=== PATIENT | male | born 1985 | race Asian ===

== ENCOUNTER 2018-04-16 21:40 | Emergency (ER) | payer OTHER ==
--- NOTE | 2018-04-16 21:50 | PDOC ---
History of Present Illness - General Chief Complaint: Pain Stated Complaint: RT HAND PAIN Time Seen by Provider: 04/16/18 21:45 - History of Present Illness Initial Comments: 04/16/18 22:11 This 32-year-old man with a history of sciatica/herniated disc but no other medical issues presents with right thumb pain. He was seen in urgent care yesterday and received "steroid shot" in MCP joint at the base of the thumb. Patient states that x-ray was performed and it showed no fracture or dislocation. Patient has no history of trauma and denies overuse. Thumb has not been swollen/red . No history of pain or inflammation in any other joint. No history of fever or chills Although patient states that he is "ALLERGIC to Toradol", he has been taking ibuprofen without adverse effects. Patient has been followed by in the past. Past History - Past Medical History Allergies/Adverse Reactions: Allergies Allergy/AdvReac Type Severity Reaction Status Date / Time No Known Allergies Allergy Unverified 09/30/12 14:42 Home Medications: Ambulatory Orders Amox-Tr/K Cl [Augmentin - 875Mg Tablet] 1 tab PO BID #14 tablet 04/16/18 Diclofenac Sodium [Voltaren -] 75 mg PO BID PRN #14 tablet. 04/16/18 COPD: No Hypercholesterolemia: Yes Psychiatric Problems: Yes Other medical history: LATERAL SCIATICA, HERNIATED DISC - Suicide/Smoking/Psychosocial Hx Smoking History: Current every day smoker Have you smoked in the past 12 months: Yes Number of Cigarettes Smoked Daily: 5 Information on smoking cessation initiated: Yes 'Breaking Loose' booklet given: 07/18/16 Hx Alcohol Use: No Drug/Substance Use Hx: No Substance Use Type: Alcohol, Marijuana Review of Systems - Review of Systems Able to Perform ROS?: Yes Comments:: 12 point review of systems is negative except for what is noted in the history of present illness *Physical Exam - Vital Signs Last Vital Signs Temp Pulse Resp BP Pulse Ox 99 F 99 H 16 127/84 99 04/16/18 21:43 04/16/18 21:43 04/16/18 21:43 04/16/18 21:43 04/16/18 21:43 - Physical Exam Comments: GENERAL: Adult male, alert and oriented 3, in no acute distress HEAD: Normal with no signs of trauma. EYES: PERRLA, EOMI, sclera anicteric, conjunctiva clear. ENT: Ears normal, nares patent, oropharynx clear without exudates. Moist mucous membranes. NECK: Normal range of motion, supple without lymphadenopathy, JVD, or masses. LUNGS: Breath sounds equal, clear to auscultation bilaterally. No wheezes, and no crackles. HEART:Regular rate and rhythm, normal S1 and S2 without murmur, rub or gallop. ABDOMEN:.normal bowel sounds No guarding,tenderness or rebound.No masses No distention. EXTREMITIES: Right hand-moderate tenderness MCP joint of the thumb with reproduction of pain on adduction of the thumb to palm No increased warmth/erythema/ edema. No lymphangitic streaking in right arm Remainder the extremity exam is normal NEUROLOGICAL: Cranial nerves II through XII grossly intact. Normal speech. No focal neurological deficits. MUSCULOSKELETAL: Back non-tender to palpation, no CVA tenderness SKIN: Warm, Dry, normal turgor, no rashes or lesions noted. Medical Decision Making - Medical Decision Making Right hand x-ray performed to evaluate for fracture/dislocation: No evidence of bony pathology in thumb or other part of the hand Although there is no clear evidence of inflammation/infection/cellulitis in the area where the patient has pain, since he states that he had a "steroid shot" in the local area of the most severe portion of his pain, localized infection cannot be ruled out. Therefore, the patient will be started on Augmentin 875/ 125 twice a day for one week. The patient has been followed by , hand surgeon the past. The patient has been advised to call the office tomorrow for follow-up within the next 48 hours. If he has worsening pain/redness/swelling or notice any lymphangitic streaking in the right hand/arm area, he should return to the ER *DC/Admit/Observation/Transfer Diagnosis at time of Disposition: Thumb pain Qualifiers: Laterality: right Qualified Code(s): M79.644 - Pain in right finger(s) - Discharge Dispostion Disposition: HOME Condition at time of disposition: Stable - Prescriptions Prescriptions: Amox-Tr/K Cl [Augmentin - 875Mg Tablet] 1 tab PO BID #14 tablet Diclofenac Sodium [Voltaren -] 75 mg PO BID PRN #14 tablet.dr SEQUEIRA Reason: Pain - Referrals Referrals: ON STAFF,NOT [Primary Care Provider] - Madan Grant MD [Staff Physician] - Call tomorrow - Patient Instructions Additional Instructions: Augmentin 875/125 twice a day for one week; take with food Diclofenac 75 mg twice a day as needed for pain; take with food Call office tomorrow to follow up with Dr. Grant Return to ER if you have increasing swelling/redness or you develop red streaking up your arm - Post Discharge Activity
[2018-04-16 21:56] VITALS: BP 127/84; PULSE 99; TEMP 99; BMI 27.3
[2018-04-16] MEDS ORDERED: AMOX TR/POT CLAV 875MG/125MG TABLETS (FP) PO ONE (22:37)
[2018-04-16] MEDS ORDERED: NAPROXEN 375 MG TABLET (FP) PO ONE (22:37)
[2018-04-16] MEDS ORDERED: NAPROXEN 375 MG TABLET (FP) ONE (22:42)
[2018-04-16] MEDS ORDERED: AMOX TR/POT CLAV 875MG/125MG TABLETS (FP) ONE (22:43)
== END 2018-04-16 22:49 | disposition home or self-care (01) ==
LOC: FER 21:40
DX: M79.644 Pain in right finger(s) (principal); F17.210 Nicotine dependence, cigarettes, uncomplicated; E78.00 Pure hypercholesterolemia, unspecified; F99 Mental disorder, not otherwise specified
CPT/HCPCS: 73130-TC-RT-FY; 99282-25

== ENCOUNTER 2020-05-05 17:00 | Emergency (ER) | payer OTHER ==
[2020-05-05 17:25] VITALS: BP 123/82; PULSE 98; TEMP 99.2; BMI 44.3
--- NOTE | 2020-05-05 17:42 | PDOC ---
History of Present Illness - General Chief Complaint: Abscess Boil Stated Complaint: BUTTOCK ABSCESS Time Seen by Provider: 05/05/20 17:10 History Source: Patient Exam Limitations: No Limitations - History of Present Illness Initial Comments: 34 yo M presents with L buttock abscess. He states he has had pain and swelling for the past few days, but it became severe today, unable to sit. Denies any leakage of fluid, but noted that there is a black area on the surface. Denies fever, chills. Past History - Medical History Allergies/Adverse Reactions: Allergies Allergy/AdvReac Type Severity Reaction Status Date / Time No Known Allergies Allergy Unverified 09/30/12 14:42 Home Medications: Ambulatory Orders Cephalexin Monohydrate [Keflex -] 500 mg PO Q6H #28 capsule 05/05/20 Lurasidone HCl [Latuda] 60 mg PO HS 05/05/20 Sulfamethoxazole/Trimethoprim [Bactrim Ds -] 1 tab PO BID 05/05/20 Temazepam [Restoril] 15 mg PO HS 05/05/20 COPD: No Hypercholesterolemia: Yes Psychiatric Problems: Yes - Psycho-Social/Smoking History Smoking History: Current every day smoker Have you smoked in the past 12 months: Yes Number of Cigarettes Smoked Daily: 10 Information on smoking cessation initiated: Yes 'Breaking Loose' booklet given: 07/18/16 - Substance Abuse Hx (Audit-C & DAST Scrn) How often the patient has a drink containing alcohol: Never Score: In Men: 4 or > Positive; In Women: 3 or > Positive: 0 Screen Result (Pos requires Nsg. Audit-10AR): Negative In the last yr the pt used illegal drug/Rx for NonMed reason: No Score: Yes response is considered Positive: 0 Screen Result (Positive result requires Nsg. DAST-10): Negative Review of Systems - Review of Systems Able to Perform ROS?: Yes Comments:: GENERAL/CONSTITUTIONAL: No fever or chills. No weakness. HEAD, EYES, EARS, NOSE AND THROAT: No change in vision. No ear pain or discharge. No sore throat. CARDIOVASCULAR: No chest pain or shortness of breath. RESPIRATORY: No cough, wheezing, or hemoptysis. GASTROINTESTINAL: No nausea, vomiting, diarrhea or constipation. GENITOURINARY: No dysuria, frequency, or change in urination. MUSCULOSKELETAL: No joint or muscle swelling or pain. No neck or back pain. SKIN: +Abscess to L buttock NEUROLOGIC: No headache, vertigo, loss of consciousness, or change in strength/sensation. ENDOCRINE: No increased thirst. No abnormal weight change. HEMATOLOGIC/LYMPHATIC: No anemia, easy bleeding, or history of blood clots. ALLERGIC/IMMUNOLOGIC: No hives or skin allergy. *Physical Exam - Vital Signs Last Vital Signs Temp Pulse Resp BP Pulse Ox 99.2 F 98 H 16 123/82 98 05/05/20 17:05 05/05/20 17:05 05/05/20 17:05 05/05/20 17:05 05/05/20 17:05 - Physical Exam GENERAL: Awake, alert, and fully oriented, in no acute distress HEAD: No signs of trauma EYES: PERRLA, EOMI, sclera anicteric, conjunctiva clear ENT: Auricles normal inspection, hearing grossly normal, nares patent, oropharynx clear without exudates. Moist mucosa NECK: Normal ROM, supple, no lymphadenopathy, JVD, or masses LUNGS: Breath sounds equal, clear to auscultation bilaterally. No wheezes, and no crackles HEART: Regular rate and rhythm, normal S1 and S2, no murmurs, rubs or gallops ABDOMEN: Soft, nontender, normoactive bowel sounds. No guarding, no rebound. No masses EXTREMITIES: Normal range of motion, no edema. No clubbing or cyanosis. No cords, erythema, or tenderness NEUROLOGICAL: Cranial nerves II through XII grossly intact. Normal speech, normal gait. Motor and sensation intact SKIN: Warm, dry, normal turgor. +Large indurated area with central fluctuance and skin breakdown to the center. Procedures - Incision and Drainage I&D Site: Left: Buttock Anesthesia: 1% Lidocaine Volume(ml): 1 Blade Size: 11 Attempts: 1 Plain Packing: No Complications: none Dressing: Yes Progress: Area was incised with immediate passage of moderate purulent material. Culture sent to lab. Loculations broken up. Exam improved afterwards (no longer tense and fluctuant). Minimal blood loss. Gauze dressing applied. Patient tolerated well. Medical Decision Making - Medical Decision Making Pt was already on 10 day course of bactrim. Keflex added for 7 days. Stable for DC home. Discharge - Discharge Information Problems reviewed: Yes Clinical Impression/Diagnosis: Left buttock abscess Condition: Stable Disposition: HOME - Admission No - Additional Discharge Information Prescriptions: Cephalexin Monohydrate [Keflex -] 500 mg PO Q6H #28 capsule - Follow up/Referral Referrals: Luly Weems [Primary Care Provider] - - Patient Discharge Instructions Patient Printed Discharge Instructions: DI for Incision and Drainage of a Skin Abscess, DI for Skin Abscess Additional Instructions: Soak in warm salt water twice a day for 20 minutes to keep the wound draining. Take antibiotics as prescribed. If you have fever, worsening redness, or any other concerning symptoms, return to the ER immediately. - Post Discharge Activity
--- NOTE | 2020-05-07 09:51 | PDOC ---
*Physical Exam - Vital Signs Last Vital Signs Temp Pulse Resp BP Pulse Ox 99.2 F 98 H 16 123/82 98 05/05/20 17:05 05/05/20 17:05 05/05/20 17:05 05/05/20 17:05 05/05/20 17:05 ED Treatment Course - ADDITIONAL ORDERS Additional order review: 05/05/20 17:40 Gram Stain - Final Buttock - Left Wound Culture - Preliminary Presumptive Mrsa (Pbp2a Pos) Medical Decision Making - Medical Decision Making 05/07/20 09:48 called by lab to report MRSA on culture taken from abscess. Physician note not completed yet. called patient on cell phone. As per patient, he is on bactrim as well as keflex prescribed by Dr. Quintero. On day 7 of bactrim, symptoms are improving. I have instructed the patient to continue bactrim and return to the ED for worsening symptoms. Discharge - Discharge Information Problems reviewed: Yes Clinical Impression/Diagnosis: Left buttock abscess Condition: Stable Disposition: HOME - Additional Discharge Information Prescriptions: Cephalexin Monohydrate [Keflex -] 500 mg PO Q6H #28 capsule - Follow up/Referral Referrals: Luly Weems [Primary Care Provider] - - Patient Discharge Instructions Patient Printed Discharge Instructions: DI for Incision and Drainage of a Skin Abscess, DI for Skin Abscess Additional Instructions: Soak in warm salt water twice a day for 20 minutes to keep the wound draining. Take antibiotics as prescribed. If you have fever, worsening redness, or any other concerning symptoms, return to the ER immediately. - Post Discharge Activity
== END 2020-05-05 17:49 | disposition home or self-care (01) ==
LOC: FER 17:00
DX: L02.31 Cutaneous abscess of buttock (principal)
CPT/HCPCS: 87070; 87186; 87205; 99283-25

== ENCOUNTER 2020-07-10 21:38 | Emergency (ER) | payer OTHER ==
--- OUTSIDE RECORDS SUMMARY | 2020-07-10 21:45 | XMS ---
:1985 Author Organization [facility] Care Team Providers Name Role Phone RACHEL CLAUDIO M.D. Unavailable Unavailable ELY Unavailable Unavailable Re-disclosure Warning The records that you are about to access may contain information from federally- assisted alcohol or drug abuse programs. If such information is present, then the following federally mandated warning applies: This information has been disclosed to you from records protected by federal confidentiality rules (42 CFR part 2). The federal rules prohibit you from making any further disclosure of this information unless further disclosure is expressly permitted by the written consent of the person to whom it pertains or as otherwise permitted by 42 CFR part 2. A general authorization for the release of medical or other information is NOT sufficient for this purpose. The Federal rules restrict any use of the information to criminally investigate or prosecute any alcohol or drug abuse patient.The records that you are about to access may contain highly sensitive health information, the redisclosure of which is protected by Article 27-F of the [facility] Public Health law. If you continue you may haveaccess to information: Regarding HIV / AIDS; Provided by facilities licensed or operated by the [facility] Office of Mental Health; or Provided by the [facility] Office for People With Developmental Disabilities. If such information is present, then the following [facility] mandated warning applies: This information has been disclosed to you from confidential records which are protected by state law. State law prohibits you from making any further disclosure of this information without the specific written consent of the person to whom it pertains, or as otherwise permitted by law. Any unauthorized further disclosure in violation of state law may result in a fine or care home sentence or both. A general authorization for the release of medical or other information is NOT sufficient authorization for further disclosure. Encounters Encounter Providers Location Date Indications Data Source(s ) Outpatient 07/05/2019 [facility] 02:10:00 PM ([facility]) Emergency H 03/26/2019 [facility] 01:46:00 PM Medical Raffy r EDT Outpatient Attender: MELISSAJIMBO CARTAGENA 03/25/2019 [place] [facility] CANEVAAdmitter: [facility] 04:44:00 PM EDT Patient discharged. Insurance Providers Payer name Policy type Policy ID Covered Covered constitution party's Policy P anderson / Coverage constitution party ID relationship to [facility] ormation type rodriguez MVP MEDICAID [id number] SP [id number] HMO O MVP/HHP O [id number] 01 [id number] SELF PAY 00 Self 00 MEDICAID OP [id number] Self [id number] [facility] MVP [id number] Self [id number] [facility] Problems, Conditions, and Diagnoses Code Display Name Description Problem Type Effective Data Dates Source(s) [id number] Post[facility], stress disorder, 05:05:00 PM ( [place] delayed onset delayed onset [facility]) [id number] Attention deficit Attention deficit Complaint 07/08/2019 [facility] hyperactivity hyperactivity 05:05:00 PM ([facility] disorder, disorder, EDT [facility] predominantly predominantly Communit y inattentive type inattentive type Se rvices) [id number] Schizoaffective Schizoaffective Complaint 07/08/2019 [facility] schizophrenia schizophrenia 05:05:00 PM ([facility]) [id number] Moderately severe Moderately severe Complaint 07/08/2019 [facility] recurrent major recurrent major 05:05:00 PM ([facility] depression depression [facility]) F41.9 Anxiety disorder, ANXIETY DISORDER, Diagnosis 03/26/2019 [facility] unspecified UNSPECIFIED 01:46:00 PM [facility] F31.9 Bipolar disorder, BIPOLAR DISORDER, Diagnosis 03/26/2019 [facility] unspecified UNSPECIFIED 01:46:00 PM [facility] F33.9 Major depressive MAJOR DEPRESSIVE Diagnosis 03/26/2019 int disorder, DISORDER, 01:46:00 PM [facility] recurrent, RECURRENT, [facility] Medical unspecified UNSPECIFIED Center 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 03/26/2019 [facility] stress disorder, STRESS DISORDER, 01:46:00 PM J osephs unspecified UNSPECIFIED [facility] Z00.8 Encounter for other ENCOUNTER FOR OTHER Diagnosis 019 [facility] general examination GENERAL EXAMINATION 01:46:0 0 PM [facility] 313.81 OPPOSITIONAL Oppositional Diagnosis 10/15/1999 [facility] DEFIANT DISORDER defiant disorder 10:15:00 AM [facility] Results ID Date Data Source Urinalysis.[id number] 03/27/2019 12:29:00 AM EDT Eber nt [facility] 0 Name Value Range Interpretation Description Data Sup porting Code Source(s) Document(s ) Color of Urine YELLOW <content Saint styleCode="Manuel Anuel d">Color, Medical Urine Center </content>YELL OW <content styleCode="Yocasta lics"> (YELLOW )</content> Glucose NEGATIVE <content [facility] [Mass/volume] styleCode="Manuel Anuel in Urine by d">Urine Medical Test strip Glucose Center </content>NEGA TIVE MG/DL<content styleCode="Yocasta lics"> (NEGATIVE MG/DL)</conten t> UNK CLEAR <content Saint styleCode="Manuel Anuel d">Urine Medical Clarity Center </content>CAMERON R <content styleCode="Yocasta lics"> (CLEAR )</content> pH of Urine by 4.5-8.0 <content Saint Test strip styleCode="Manuel Anuel d">Urine pH Medical </content>7.0 Center <content styleCode="Yocasta lics"> (4.5-8.0 )</content> Specific 1.015-1.02 <content [facility] gravity of 5 styleCode="Manuel Anuel Urine by Test d">Urine Medical strip Specific Center [place] </content>1.01 5 <content styleCode="Yocasta lics"> (1.015-1.025 )</content> Hemoglobin NEGATIVE <content Saint [Presence] in styleCode="Manuel Ramirezs Urine by Test d">Urine Blood Medical strip </content>NEGA Center TIVE <content styleCode="Yocasta lics"> (NEGATIVE )</content> Ketones NEGATIVE <content [facility] [Mass/volume] styleCode="Manuel Anuel in Urine by d">Urine Medical Test strip Ketone Center </content>15 MG/DL<content styleCode="Yocasta lics"> (NEGATIVE MG/DL)</conten t> UNK NEGATIVE <content Saint styleCode="Manuel Anuel d">Urine Medical Bilirubin Center </content>NEGA TIVE <content styleCode="Yocasta lics"> (NEGATIVE )</content> Nitrite NEGATIVE <content Saint [Presence] in styleCode="Manuel Ramirezs Urine by Test d">Urine Medical strip Nitrite Center </content>NEGA TIVE <content styleCode="Yocasta lics"> (NEGATIVE )</content> Urobilinogen 0.2-1.0 <content [facility] [Units/volume] styleCode="Manuel Ramirezs in Urine by d">Urine Medical Test strip Urobilinogen Center </content>1.0 MG/DL<content styleCode="Yocasta lics"> (0.2-1.0 MG/DL)</conten t> Leukocyte NEGATIVE <content [facility] esterase styleCode="Manuel Ramirezs [Presence] in d">Urine Medical Urine by Test Leukocyte Center strip </content>NEGA TIVE <content styleCode="Yocasta lics"> (NEGATIVE )</content> Protein NEGATIVE <content Saint [Mass/volume] styleCode="Manuel Anuel in Urine by d">Urine Medical Test strip Protein Center </content>NEGA TIVE MG/DL<content styleCode="Yocasta lics"> (NEGATIVE MG/DL)</conten t> ID Date Data Source CHMROUTINECCDA.[id number] 03/27/2019 12:29:00 AM EDT [facility] -0400 Name Value Range Interpretation Description Data Sup porting Code Source(s) Document(s ) Cannabinoids <content [facility] [Presence] in styleCode="[facility] Urine by Screen d">Cannabinoid Medical method >50 ng/mL s Center </content>PRES UMPTIVE POSITIVE NG/ML (Reference Range: not available)<br/ > ID Date Data Source Liver 03/26/2019 10:46:00 PM EDT [facility] Profile.[id number] Name Value Range Interpretation Description Data Sup porting Code Source(s) Document(s ) Aspartate 17-59 <content [facility] aminotransferase styleCode="Bold"> Christiano hs [Enzymatic Aspartate Medical activity/volume] Aminotransferase Center in Serum or Plasma (AST) </content>32 IU/L<content styleCode="Italic s"> (17-59 IU/L)</content> Alanine 7-50 <content [facility] aminotransferase styleCode="Bold"> Christiano hs [Enzymatic Alanine Medical activity/volume] Aminotransferase Center in Serum or Plasma (ALT) </content>47 IU/L<content styleCode="Italic s"> (7-50 IU/L)</content> Alkaline 38-126 <content [facility] phosphatase styleCode="Bold"> Anuel [Enzymatic Alkaline Medical activity/volume] Phosphatase (ALP) Cente r in Serum or Plasma </content>96 IU/L<content styleCode="Italic s"> (38-126 IU/L)</content> Albumin 3.5-5.0 <content [facility] [Mass/volume] in styleCode="Bold"> Christiano hs Serum or Plasma Albumin Medical </content>4.9 Center G/DL<content styleCode="Italic s"> (3.5-5.0 G/DL)</content> Bilirubin.total 0.2-1.3 Above high <content [facility] [Mass/volume] in normal styleCode="Bold"> Christiano hs Serum or Plasma Bilirubin Total Medical </content>1.5 Center MG/DL H<content styleCode="Italic s"> (0.2-1.3 MG/DL)</content> ID Date Data Source Hormones.[id number] 03/26/2019 10:46:00 PM EDT [facility] t [facility] Name Value Range Interpretation Description Data Sup porting Code Source(s) Document(s ) Thyrotropin 0.465-4. <content Saint [Units/volume] 68 styleCode="Manuel Anuel in Serum or d">Thyroid Medical Plasma by Stimulating Center Detection Hormone limit <= 0.05 </content>0.64 mIU/L 9 MIU/L<content styleCode="Yocasta lics"> (0.465-4.68 MIU/L)</conten t> ID Date Data Source HematologyRou.[id number] 03/26/2019 10:46:00 PM EDT [facility] nt [facility] 0400 Name Value Range Interpretation Description Data Sup porting Code Source(s) Document(s ) Erythrocyte mean 80.0-100 <content [facility] corpuscular .0 styleCode="Bold Anuel volume [Entitic ">Mean Medical volume] by Corpuscular Center Automated count Volume </content>94.0 FL<content styleCode="Ital ics"> (80.0-100.0 FL)</content> Leukocytes 4.4-11.0 <content Saint [#/volume] in styleCode="Bold Anuel Blood by ">White Blood Medical Automated count Cell Count Center </content>9.57 KCUMM<content styleCode="Ital ics"> (4.4-11.0 KCUMM)</content > Erythrocytes 4.4-5.9 <content Saint [#/volume] in styleCode="Bold Anuel Blood by ">Red Blood Medical Automated count Cell Count Center </content>5.20 MCUMM<content styleCode="Ital ics"> (4.4-5.9 MCUMM)</content > Hemoglobin 13.5-17. <content [facility] [Mass/volume] in 5 styleCode="Bold Anuel Blood ">Hemoglobin Medical </content>16.8 Center G/DL<content styleCode="Ital ics"> (13.5-17.5 G/DL)</content> Hematocrit 41.0-53. <content Saint [Volume 0 styleCode="Bold Anuel Fraction] of ">Hematocrit Medical Blood by </content>48.9 Center Automated count %<content styleCode="Ital ics"> (41.0-53.0 %)</content> Erythrocyte mean 26.0-34. <content [facility] corpuscular 0 styleCode="Bold Anuel hemoglobin ">Mean Medical [Entitic mass] Corposcular Center by Automated Hemoglobin count </content>32.3 PG<content styleCode="Ital ics"> (26.0-34.0 PG)</content> Erythrocyte 11.5-14. <content [facility] distribution 5 styleCode="Bold Anuel width [Ratio] by ">Red Cell Medical Automated count Distribution Center Width </content>12.5 %<content styleCode="Ital ics"> (11.5-14.5 %)</content> Erythrocyte mean 32.0-37. <content [facility] corpuscular 0 styleCode="Bold Anuel hemoglobin ">Mean Corpus. Medical concentration Hgb Center [Mass/volume] by Concentration Automated count (MCHC) </content>34.4 G/DL<content styleCode="Ital ics"> (32.0-37.0 G/DL)</content> Platelets 130-400 <content Saint [#/volume] in styleCode="Bold Anuel Blood by ">Platelet Medical Automated count Count Center </content>343 KCUMM<content styleCode="Ital ics"> (130-400 KCUMM)</content > UNK 0 <content Saint styleCode="Bold Anuel ">Nucleated Red Medical Blood Cell Center </content>0.0 /100<content styleCode="Ital ics"> (0 /100)</content> UNK 0.0 <content Saint styleCode="Bold Anuel ">Nucleated Red Medical Blood Cell Center Count </content>0.00 KCUMM<content styleCode="Ital ics"> (0.0 KCUMM)</content > Platelet mean 8.0-11.0 <content [facility] volume [Entitic styleCode="Bold Anuel volume] in Blood ">Mean Platelet Medical by Automated Volume Center count </content>9.1 FL<content styleCode="Ital ics"> (8.0-11.0 FL)</content> ID Date Data Source GFR(Creatinine).[id number] 03/26/2019 10:46:00 PM EDT [facility] 0-0400 Name Value Range Interpretation Code Description Data Ashely rce(s) Supporting Document(s ) UNK > 60 <content [facility] styleCode="Bold"> Medical Cent er EGFR </content>103 GFR<content styleCode="Italic s"> (> 60 GFR)</content> ID Date Data Source CHMROUTINECCDA.[id number] 03/26/2019 10:46:00 PM EDT [facility] -0400 Name Value Range Interpretation Description Data Sup porting Code Source(s) Document(s ) UNK >= 1.0 <content [facility] styleCode="Bold Medical ">AG Ratio Center </content>1.4 <content styleCode="Ital ics"> (>= 1.0 )</content> UNK 2.3-3.5 <content [facility] styleCode="Bold Medical ">Globulin Center </content>3.4 G/DL<content styleCode="Ital ics"> (2.3-3.5 G/DL)</content> Protein 6.3-8.2 Above high normal <content [place] [Mass/volum styleCode="Bold Medical e] in Serum ">Total Protein Center or Plasma </content>8.3 G/DL H<content styleCode="Ital ics"> (6.3-8.2 G/DL)</content> ID Date Data Source [facility].[id number] 03/26/2019 10:46:00 PM EDT [facility] Name Value Range Interpretation Description Data Sup porting Code Source(s) Document(s ) Potassium 3.5-5.3 <content [facility] [Moles/volume] in styleCode="Bold"> Carloz phs Serum or Plasma Potassium Medical </content>4.1 Center MEQ/L<content styleCode="Italic s"> (3.5-5.3 MEQ/L)</content> Chloride 98-107 <content [facility] [Moles/volume] in styleCode="Bold"> Carloz phs Serum or Plasma Chloride Medical </content>98 Center MEQ/L<content styleCode="Italic s"> (98-107 MEQ/L)</content> Sodium 137-145 <content [facility] [Moles/volume] in styleCode="Bold"> Carloz phs Serum or Plasma Sodium Medical </content>140 Center MEQ/L<content styleCode="Italic s"> (137-145 MEQ/L)</content> UNK 9-20 <content Saint styleCode="Bold"> Anuel BUN </content>18 Medical MG/DL<content Center styleCode="Italic s"> (9-20 MG/DL)</content> Calcium 8.4-10. Above high <content Saint [Mass/volume] in 2 normal styleCode="Bold"> Christiano hs Serum or Plasma Calcium Medical </content>10.4 Center MG/DL H<content styleCode="Italic s"> (8.4-10.2 MG/DL)</content> Creatinine 0.5-1.3 <content [facility] [Mass/volume] in styleCode="Bold"> Christiano hs Serum or Plasma Creatinine Medical </content>0.9 Center MG/DL<content styleCode="Italic s"> (0.5-1.3 MG/DL)</content> Glucose 74-106 <content [facility] [Mass/volume] in styleCode="Bold"> Christiano hs Serum or Plasma Glucose Medical </content>99 Center MG/DL<content styleCode="Italic s"> (74-106 MG/DL)</content> Carbon dioxide, 22-30 Above high <content [facility] total normal styleCode="Bold"> Anuel [Moles/volume] in Carbon Dioxide Medical Serum or Plasma </content>31 Center MEQ/L H<content styleCode="Italic s"> (22-30 MEQ/L)</content> Albumin 3.5-5.0 <content [facility] [Mass/volume] in styleCode="Bold"> Christiano hs Serum or Plasma Albumin Medical </content>4.9 Center G/DL<content styleCode="Italic s"> (3.5-5.0 G/DL)</content> Bilirubin.total 0.2-1.3 Above high <content [facility] [Mass/volume] in normal styleCode="Bold"> Christiano hs Serum or Plasma Bilirubin Total Medical </content>1.5 Center MG/DL H<content styleCode="Italic s"> (0.2-1.3 MG/DL)</content> Aspartate 17-59 <content [facility] aminotransferase styleCode="Bold"> Christiano hs [Enzymatic Aspartate Medical activity/volume] Aminotransferase Center in Serum or Plasma (AST) </content>32 IU/L<content styleCode="Italic s"> (17-59 IU/L)</content> Alkaline 38-126 <content [facility] phosphatase styleCode="Bold"> Anuel [Enzymatic Alkaline Medical activity/volume] Phosphatase (ALP) Cente r in Serum or Plasma </content>96 IU/L<content styleCode="Italic s"> (38-126 IU/L)</content> UNK > 60 <content Saint styleCode="Bold"> Anuel EGFR Medical </content>103 Center GFR<content styleCode="Italic s"> (> 60 GFR)</content> Alanine 7-50 <content [facility] aminotransferase styleCode="Bold"> Christiano hs [Enzymatic Alanine Medical activity/volume] Aminotransferase Center in Serum or Plasma (ALT) </content>47 IU/L<content styleCode="Italic s"> (7-50 IU/L)</content> Procedure Social History Code Duration Value Status Description Data Source(s ) Smoking 03/26/2019 Denies Ever completed Denies Ever Smoked [facility] 02:33:00 PM EDT Smoked Medical C enter Smoking 03/26/2019 Denies Ever completed Denies Ever Smoked [facility] 02:22:00 PM EDT Smoked Medical C enter Smoking 03/26/2019 Denies Ever completed Denies Ever Smoked [facility] 01:59:00 PM EDT Smoked Medical C enter Vital Signs ID Date Data Source UNK Name Value Range Interpretation Code Description Data Source(s) Body temperature 36.647687 36.965257 [facility] Respiratory rate 18 /min 18 /min [facility] Oxygen saturation 99 % 99 % [facility] in Arterial blood [facility] by Pulse oximetry Heart rate 80 /min 80 /min [facility] Diastolic blood 80 mm[Hg] 80 mm[Hg] [facility] pressure Medical Center Systolic blood 133 mm[Hg] 133 mm[Hg] [facility] Body temperature 37.075905 37.711487 [facility] Respiratory rate 17 /min 17 /min [facility] Oxygen saturation 98 % 98 % [facility] J [facility]phs in Arterial blood [facility] Center by Pulse oximetry Heart rate 98 /min 98 /min [facility] Diastolic blood 89 mm[Hg] 89 mm[Hg] [facility] pressure Medical Center Systolic blood 117 mm[Hg] 117 mm[Hg] [facility] Body weight 78.605435 kg 78.914037 kg [facility] Medical [place] Body temperature 36.510829 36.919222 [facility] Respiratory rate 17 /min 17 /min [facility] Oxygen saturation 99 % 99 % [facility] in Arterial blood [facility] by Pulse oximetry Heart rate 80 /min 80 /min [facility] Body height 177.361633 177.468205 cm [facility] Diastolic blood 83 mm[Hg] 83 mm[Hg] [facility] pressure Medical Center Systolic blood 129 mm[Hg] 129 mm[Hg] [facility] Body mass index 24.6 kg/m2 24.6 kg/m2 [facility] (BMI) [Ratio] [facility] ter Body temperature 36.439581 36.572789 [facility] Respiratory rate 19 /min 19 /min [facility] Oxygen saturation 98 % 98 % [facility] in Arterial blood [facility] by Pulse oximetry Heart rate 106 /min 106 /min [facility] Diastolic blood 96 mm[Hg] 96 mm[Hg] [facility] pressure Medical Center Systolic blood 153 mm[Hg] 153 mm[Hg] [facility] Body temperature 36.345210 36.141140 [facility] Respiratory rate 17 /min 17 /min [facility] Oxygen saturation 99 % 99 % [facility] in Arterial blood Medical Center by Pulse oximetry Heart rate 92 /min 92 /min [facility] Diastolic blood 79 mm[Hg] 79 mm[Hg] [facility] pressure Medical Center Systolic blood 133 mm[Hg] 133 mm[Hg] [facility] pressure Medical Center Body weight 68.728985 kg 68.935482 kg [facility] Body height 175.261641 175.826494 cm [facility] cm Medical Center Body mass index 22.1 kg/m2 22.1 kg/m2 [facility] [place] [facility] (BMI) [Ratio] Medical [facility] ter
[2020-07-10 22:48] VITALS: BP 125/87; PULSE 104; TEMP 98.3; BMI 29.7
[2020-07-10] MEDS ORDERED: CLINDAMYCIN HCL 300 MG CAPSULE PO ONE (23:29)
[2020-07-10] MEDS ORDERED: CLINDAMYCIN HCL 150 MG CAPSULE (FP) ONE (23:30)
--- NOTE | 2020-07-10 23:33 | PDOC ---
History of Present Illness - General Chief Complaint: Pain Stated Complaint: ABCESS Time Seen by Provider: 07/10/20 21:44 - History of Present Illness Initial Comments: This 34-year-old man, with a history of skin abscesses requiring incision and drainage but otherwise healthy, presents with 1 day history of painful swelling in the perianal area. He last had incision and drainage of left buttock abscess approximately a year ago. He denies current fevers/chills, drainage from the area. He states that he has had other skin abscesses that were positive for MRSA. No history of immunocompromise or other medical illnesses. On no daily medications No known allergies Non-smoker/no daily alcohol or other recreational drug use Past History - Medical History Allergies/Adverse Reactions: Allergies Allergy/AdvReac Type Severity Reaction Status Date / Time No Known Allergies Allergy Unverified 09/30/12 14:42 Home Medications: Ambulatory Orders Clindamycin [Cleocin -] 300 mg PO TID #21 capsule 07/10/20 COPD: No Hypercholesterolemia: Yes Psychiatric Problems: Yes - Immunization History Td Vaccination: Yes Immunization Up to Date: Yes - Psycho-Social/Smoking History Smoking History: Never smoked Have you smoked in the past 12 months: No Number of Cigarettes Smoked Daily: 10 Information on smoking cessation initiated: No 'Breaking Loose' booklet given: 07/18/16 - Substance Abuse Hx (Audit-C & DAST Scrn) How often the patient has a drink containing alcohol: Never Score: In Men: 4 or > Positive; In Women: 3 or > Positive: 0 Screen Result (Pos requires Nsg. Audit-10AR): Negative In the last yr the pt used illegal drug/Rx for NonMed reason: No Score: Yes response is considered Positive: 0 Screen Result (Positive result requires Nsg. DAST-10): Negative Review of Systems - Review of Systems Able to Perform ROS?: Yes Comments:: 12 point review of systems is negative except for what is noted in the history of present illness *Physical Exam - Vital Signs Last Vital Signs Temp Pulse Resp BP Pulse Ox 98.3 F 104 H 16 125/87 100 07/10/20 21:42 07/10/20 21:42 07/10/20 21:42 07/10/20 21:42 07/10/20 21:42 - Physical Exam GENERAL: The patient is awake, alert, and fully oriented, in no acute distress. HEAD: Normal with no signs of trauma. EYES: Pupils equal, round and reactive to light, extraocular movements intact, sclera anicteric, conjunctiva clear with no pallor. ENT: moist mucous membranes. Ears normal, nares patent, oropharynx clear without exudates. NECK: Normal range of motion, supple without lymphadenopathy, JVD, or masses. LUNGS: Breath sounds equal, clear to auscultation bilaterally. No wheeze/crackles. HEART: Regular rate and rhythm, normal S1 and S2 without murmur or rub. ABDOMEN: Soft/nontender/nondistended. BS wnl. No guarding or rebound. No palpable masses. No hepatosplenomegaly. RECTAL: Mild tenderness, erythema and edema left side of perianal area. No fluctuance or discharge EXTREMITIES: Normal range of motion, no edema. No clubbing or cyanosis. No cords, erythema, or tenderness. NEUROLOGICAL: Cranial nerves II through XII grossly intact. Normal speech, normal gait. PSYCH: Normal mood, normal affect. SKIN: Warm, Dry, normal turgor, no rashes or lesions noted. Medical Decision Making - Medical Decision Making This 34-year-old man with a history of skin abscesses some requiring incision and drainage (MRSA positive) presents with 1 day history of discomfort and swelling in the perianal area. No associated symptoms and no previous history of perianal/pilonidal abscess. Patient had relatively recent abscess requiring drainage of the left buttock (lateral cheek area). Exam as noted with small area of erythema, edema and tenderness without fluctuance or discharge. Although patient may have very early abscess, does not appear to be drainable at this point. Since patient has had positive MRSA wound culture by history, clindamycin 300 mg 3 times a day will be prescribed with first dose given here in the emergency room. He should also warm pack the area. He should return to the ER if he has increased pain, swelling in the area or if he notices discharge. Also, patient develops fever/chills, he should return to the ER Discharge - Discharge Information Problems reviewed: Yes Clinical Impression/Diagnosis: Perianal cellulitis Condition: Stable Disposition: HOME - Additional Discharge Information Prescriptions: Clindamycin [Cleocin -] 300 mg PO TID #21 capsule - Follow up/Referral - Patient Discharge Instructions Patient Printed Discharge Instructions: DI for Cellulitis -- Adult Additional Instructions: Warm pack area at least 3 times a day for 15 minutes for the next 5 days Clindamycin 300 mg 3 times a day for 1 week Return to ER if you have worsening swelling, pain or drainage from the area Follow-up with your doctor within the next 5 to 7 days - Post Discharge Activity
== END 2020-07-10 23:36 | disposition home or self-care (01) ==
LOC: FER 21:38
DX: K61.0 Anal abscess (principal)
CPT/HCPCS: 99283-25

== ENCOUNTER 2021-03-08 02:02 | Emergency (ER) | payer OTHER ==
[2021-03-08 02:09] VITALS: BP 123/88; PULSE 82; TEMP 97.9; BMI 30.7
[2021-03-08] MEDS ORDERED: SULFAMETHOXAZOLE/TRIMETHOPRIM 800MG/160MG D.S. TABLET ONE (02:18)
[2021-03-08] MEDS ORDERED: SULFAMETHOXAZOLE/TRIMETHOPRIM 800MG/160MG D.S. TABLET PO ONE (02:21)
== END 2021-03-08 02:26 | disposition home or self-care (01) ==
LOC: FER 02:02
DX: L08.9 Local infection of the skin and subcutaneous tissue, unspecified (principal)
CPT/HCPCS: 99283-25

== ENCOUNTER 2021-10-09 12:57 | Emergency (ER) | payer OTHER ==
[2021-10-09] MEDS ORDERED: LORazepam 2 MG/ML SDV VIAL IVPUSH ONE (13:11)
[2021-10-09] MEDS ORDERED: ACETAMINOPHEN 1000 MG/100 ML VIAL IVPB ONE (13:12)
[2021-10-09] MEDS ORDERED: SODIUM CHLORIDE 1,000 ML IV STA (13:12)
[2021-10-09 13:24] VITALS: TEMP 98.9; BMI 29.7
[2021-10-09] MEDS ORDERED: LORazepam 2 MG/ML SDV VIAL ONE (13:31)
[2021-10-09] MEDS ORDERED: ACETAMINOPHEN INJECTION 100 ML IVPB ONE (13:31)
[2021-10-09 14:26] LABS: ALBUMIN 4.9 g/dl (3.4-5.0); BILIRUBIN,TOTAL 1.4 mg/dl (0.2-1); CALCIUM 9.8 mg/dl (8.5-10); CREATININE 0.9 mg/dl (0.55-1.3); TOT PROT 8.2 g/dl (6.4-8.2)
[2021-10-09 14:40] LABS: INR 1.01 (0.82-1.09); PROTHROMBIN TIME (PATIENT) 11.2 SEC (10.2-13.0)
[2021-10-09 15:18] LABS: BASO % 0.4 % (0-2.0); EOS % 0.1 % (0-4.5); HEMATOCRIT 47.9 % (35.4-49); HEMOGLOBIN 16.5 GM/dL (11.7-16.9); LYMPH % 19.8 % (8-40); MCH 31.9 pg (25.7-33.7); MCHC 34.4 g/dl (32.0-35.9); MEAN CELL VOLUME 92.6 fl (80-96); MEAN PLT VOLUME 7.8 fl (7.5-11.1); MONO % 8.4 % (3.8-10.2); NEUT % 71.3 % (42.8-82.8); PLATELET COUNT 355 10^3/uL (134-434); RBC 5.17 M/mm3 (4.00-5.60); RDW 13.4 % (11.9-15.9); WHITE BLOOD COUNT 9.3 K/mm3 (4.0-10.0)
[2021-10-09 16:26] VITALS: BP 132/72; PULSE 80
== END 2021-10-09 16:44 | disposition home or self-care (01) ==
LOC: FER 12:57
PROC: 3E033GC Introduction of Other Therapeutic Substance into Peripheral Vein, Percutaneous Approach (ICD-10-PCS; principal; 2021-10-09)
DX: R06.02 Shortness of breath (principal)
CPT/HCPCS: 36415; 71045-TC-FY; 80053; 82550; 82553; 82962; 83735; 84443; 84484; 85025; 85379; 85610; 85730; 93005; 99285-25; C9803; J0131; U0003; U0005

== ENCOUNTER 2023-02-22 19:55 | Emergency (ER) | payer OTHER ==
[2023-02-22 20:14] VITALS: BP 152/102; PULSE 127; RESP 18; TEMP 98.7; BMI 29.0
[2023-02-22] MEDS ORDERED: KETOROLAC TROMETHAMINE 60 MG/2 ML VIAL IM ONE (20:21)
[2023-02-22] MEDS ORDERED: KETOROLAC TROMETHAMINE 60 MG/2 ML VIAL ONE (20:22)
== END 2023-02-22 20:38 | disposition home or self-care (01) ==
LOC: FER 19:55
PROC: 3E0233Z Introduction of Anti-inflammatory into Muscle, Percutaneous Approach (ICD-10-PCS; principal; 2023-02-22)
DX: M76.52 Patellar tendinitis, left knee (principal)
CPT/HCPCS: 99284-25

== ENCOUNTER 2023-12-10 14:35 | Emergency (ER) | payer OTHER ==
[2023-12-10 14:58] VITALS: BP 142/100; PULSE 72; RESP 16; TEMP 98.7; BMI 28.1
[2023-12-10 16:08] LABS: HEMATOCRIT 42.3 % (35.4-49); MCHC 33.1 g/dl (32.0-35.9); MEAN CELL VOLUME 93.7 fl (80-96); MEAN PLT VOLUME 7.7 fl (7.5-11.1); PLATELET COUNT 311.7 10^3/uL (134-434); RBC 4.51 10^6/uL (4.00-5.60); RDW 14.1 % (11.9-15.9); WHITE BLOOD COUNT 6.5 10^3/uL (4.0-10.8)
[2023-12-10 16:08] LABS: INR 0.93 (0.83-1.09); PROTHROMBIN TIME (PATIENT) 10.8 SEC (9.7-13.0)
[2023-12-10 16:11] LABS: ACTIVATED PTT 37.3 SECONDS (25.2-36.5)
[2023-12-10 17:21] LABS: PLATELET ESTIMATE ADEQUATE
[2023-12-10 17:42] LABS: POTASSIUM 3.8 mmol/L (3.5-5.1)
[2023-12-10 17:45] LABS: ALBUMIN 4.1 g/dl (3.4-5.0)
[2023-12-10 17:46] LABS: BLOOD UREA NITROGEN 13.3 mg/dL (7-18); MAGNESIUM 2.3 mg/dL (1.8-2.4)
[2023-12-10 17:49] LABS: CREATININE 0.9 mg/dL (0.55-1.3)
[2023-12-10 17:51] LABS: BILIRUBIN,TOTAL 0.4 mg/dL (0.2-1); TOT PROT 7.2 g/dl (6.4-8.2)
== END 2023-12-10 18:00 | disposition home or self-care (01) ==
LOC: FER 14:35
DX: R42 Dizziness and giddiness (principal); R51.9 Headache, unspecified; S06.0X0A Concussion without loss of consciousness, initial encounter; R55 Syncope and collapse; Z20.822 Contact with and (suspected) exposure to COVID-19; X58.XXXA Exposure to other specified factors, initial encounter
CPT/HCPCS: 0241U-QW; 36415; 70450-TC; 72125-TC; 80053; 83735; 84484; 85027; 85610; 85730; 93005; 99285-25

== ENCOUNTER 2024-06-02 15:49 | Emergency (ER) | payer OTHER ==
[2024-06-02 16:32] VITALS: BP 142/98; PULSE 48; RESP 16; TEMP 98.2; BMI 27.4
[2024-06-02 17:27] LABS: HEMOGLOBIN 14.6 G/dL (11.7-16.9); MCH 31.4 pg (25.7-33.7); MCHC 32.5 g/dl (32.0-35.9); MEAN CELL VOLUME 96.6 fl (80-96); MEAN PLT VOLUME 7.8 fl (7.5-11.1); PLATELET COUNT 262.4 10^3/uL (134-434); RBC 4.66 10^6/uL (4.00-5.60); RDW 14.1 % (11.9-15.9); WHITE BLOOD COUNT 10.3 10^3/uL (4.0-10.8)
[2024-06-02 17:41] LABS: ALBUMIN 4.4 g/dl (3.4-5.0); BILIRUBIN,TOTAL 0.5 mg/dl (0.2-1); CALCIUM 9.8 mg/dl (8.5-10.1); CREATININE 0.9 mg/dl (0.6-1.3); POTASSIUM 4.7 mmol/L (3.5-5.1); TOT PROT 6.7 g/dl (6.4-8.2)
[2024-06-02 17:42] LABS: PLATELET ESTIMATE ADEQUATE
== END 2024-06-02 18:08 | disposition home or self-care (01) ==
LOC: FER 15:49
DX: I73.00 Raynaud's syndrome without gangrene (principal); R20.2 Paresthesia of skin
CPT/HCPCS: 36415; 80053; 85025; 99283-25

== ENCOUNTER 2024-10-29 06:12 | Day surgery (SDC) | payer OTHER ==
[2024-10-22 13:18] VITALS: BMI 29.0
[2024-10-29] MEDS ORDERED: SUCCINYLCHOLINE CHLORIDE 200 MG/10 ML SYRINGE ONE (06:51)
[2024-10-29] MEDS ORDERED: ceFAZolin SODIUM 1 GM VIAL ONE (06:55)
[2024-10-29] MEDS ORDERED: DEXAMETHASONE SOD PHOSPHATE 4 MG/1 ML VIAL ONE (06:56)
[2024-10-29] MEDS ORDERED: PROPOFOL 20 ML ONE ×2 (06:56→07:59)
[2024-10-29] MEDS ORDERED: ONDANSETRON 4 MG/2 ML VIAL ONE (06:56)
[2024-10-29 06:58] VITALS: TEMP 97.8
[2024-10-29] MEDS ORDERED: ROPIVACAINE HCL/PF 100 MG/20 ML VIAL ONE (07:02)
[2024-10-29] MEDS ORDERED: ACETAMINOPHEN INJECTION 100 ML ONE (07:02)
[2024-10-29] MEDS ORDERED: BUPIVACAINE HCL/EPINEPHRINE/PF 30 ML VIAL IJ ONE (07:13)
[2024-10-29] MEDS ORDERED: VANCOMYCIN 1,000 MG VIAL (RESTRICTED TO ID ONLY) ONE (07:35)
[2024-10-29] MEDS ORDERED: DEXMEDETOMIDINE HCL 200 MCG/2 ML IVPB ONE (08:25)
[2024-10-29] MEDS ORDERED: BACITRACIN ZINC 15 GM TUBE TOPICAL OINTMENT ONE (08:27)
[2024-10-29] MEDS ORDERED: LACTATED RINGERS SOLUTION 1,000 ML IV SCH (08:30)
[2024-10-29 10:06] VITALS: BP 124/78; PULSE 72; RESP 18
== END 2024-10-29 09:55 | disposition home or self-care (01) ==
LOC: FASU 06:12
PROVIDERS: ATTEND Orthopaedic Surgery
PROC: 01N40ZZ Release Ulnar Nerve, Open Approach (ICD-10-PCS; principal; 2024-10-29 08:01)
DX: G56.22 Lesion of ulnar nerve, left upper limb (principal)
CPT/HCPCS: J0131